=== PATIENT | male | born 1940 | race Caucasian/White ===

== ENCOUNTER 2020-03-17 18:30 | Inpatient (IN) | payer MEDICARE, SELFPAY ==
[~2020-03-17] VITALS: Ht 165.1 cm; Wt 54.0 kg
[2020-03-17 18:30] VITALS: BP_SYST 132
[2020-03-17 19:28] LABS: BASOPHILS % (AUTO) 0.1 % (0.0-2.0); EOSINOPHILS % (AUTO) 0.1 % (0.0-4.0); HEMATOCRIT 31.6 % (36-54); LYMPHOCYTES # (AUTO) 0.6 K/uL (1.0-5.5); LYMPHOCYTES % (AUTO) 9.3 % (20.5-51.5); MEAN CORPUSCULAR HEMOGLOBIN 39 pg (27-31); MEAN CORPUSCULAR HGB CONC 32 % (32-36); MEAN CORPUSCULAR VOLUME 122 fL (79.0-98.0); MONOCYTES # (AUTO) 0.3 K/uL (0.0-1.0); MONOCYTES % (AUTO) 4.6 % (1.7-9.3); NEUTROPHILS # (AUTO) 5.7 K/uL (1.8-7.7); NEUTROPHILS % (AUTO) 85.9 % (40.0-70.0); WHITE BLOOD COUNT (AUTO) 6.7 K/uL (4.8-10.8)
[2020-03-17 19:44] LABS: PLATELET COUNT (AUTO) 74 K/uL (130-430)
[2020-03-17 19:46] LABS: INR 1.1 (0.80-1.20); PROTHROMBIN TIME 10.9 SECS (9.5-12.5)
[2020-03-17 19:58] LABS: ANION GAP 17 (5-15); CALCIUM 8.9 mg/dL (8.4-11.0); CHLORIDE 118 mmol/L (98-107); CREATININE 1.48 mg/dL (0.55-1.30); GLUCOSE 152 mg/dL (70-99); SODIUM SERUM 156 mmol/L (136-145); UREA NITROGEN, BLOOD 44 mg/dL (8-21)
[2020-03-17] MEDS ORDERED: IPRATROPIUM/ALBUTEROL SULFATE 3 ML AMPUL.NEB (DUONEB) INH ONE (20:00)
[2020-03-17 20:06] LABS: ALANINE AMINOTRANSFERASE 18 U/L (12-78); ALBUMIN 3.6 g/dL (3.4-4.8); ASPARTATE AMINOTRANSFERASE 21 U/L (10-37); TOTAL BILIRUBIN 1.3 mg/dL (0.0-1.0)
[2020-03-17 20:26] LABS: CKMB RELATIVE INDEX 0.3 (0.0-2.9); CREATINE KINASE MB 1.1 ng/mL (0-3.6)
[2020-03-17] MEDS ORDERED: NACL 0.9% 1,000 ML IV ONE ×2 (20:30→22:00)
[2020-03-17] MEDS ORDERED: cefTRIAXone 1 GM in D5W 50 ML IV ONE (20:30)
[2020-03-17] MEDS ORDERED: ALLO100T PO (20:44)
[2020-03-17] MEDS ORDERED: FOLI-43 PO (20:46)
[2020-03-17] MEDS ORDERED: ATORVASTATIN (20:46)
[2020-03-17] MEDS ORDERED: CHOL500052 PO (20:47)
[2020-03-17] MEDS ORDERED: cefTRIAXone 1 GM VIAL ONE (20:53)
[2020-03-17] MEDS ORDERED: DEXAMETHASONE SOD PHOSPHATE 4 MG/ML VIAL IVP ONE (23:15)
[2020-03-17] MEDS ORDERED: AZITHROMYCIN 500 MG in NS 250 ML IV ONE (23:15)
[2020-03-17] MEDS ORDERED: AZITHROMYCIN 500 MG/VIAL (ZITHROMAX) IV ONE (23:43)
[2020-03-18] MEDS ORDERED: INSULIN REGULAR, HUMAN 100 UNITS/ML, 10 ML VIAL (humuLIN R) SUBCUT PRN
[2020-03-18] MEDS ORDERED: 0.45% NACL 1,000 ML IV ONE
[2020-03-18] MEDS ORDERED: KCL 40 mEq in 100 mL (PREMIX) 100 ML IV ONE
[2020-03-18] MEDS ORDERED: SODIUM BICARBONATE 8.4% JECT 100 MEQ in D5W 1,000 ML IV SCH (00:15)
[2020-03-18 00:20] VITALS: BP_SYST 137
[2020-03-18] MEDS ORDERED: KCL 40 mEq in 100 mL (PREMIX) 100 ML IV PRN (00:30)
[2020-03-18 00:36] LABS: BILIRUBIN,URINE 1+ (NEGATIVE); CLARITY/URINE CLEAR (CLEAR); COLOR,URINE YELLOW (YELLOW); GLUCOSE,URINE NEGATIVE (NEGATIVE); KETONES,URINE 1+ (NEGATIVE); LEUKOCYTE ESTERASE ,URINE NEGATIVE (NEGATIVE); NITRITE, URINE NEGATIVE (NEGATIVE); PH,URINE 5.5 (5.0-8.0); PROTEIN URINE 1+ (NEGATIVE); UROBILINOGEN,URINE 0.2 (0.2-1.0)
[2020-03-18 00:39] LABS: BLOOD, URINE TRACE (NEGATIVE)
[2020-03-18 00:42] LABS: BACTERIA,URINE FEW /HPF (None Seen)
[2020-03-18] MEDS ORDERED: PIPERACILLIN/TAZOBACTAM 2.25 GM VIAL IV ONE (01:12)
[2020-03-18] MEDS: PIPERACILLIN/TAZOBACTAM 2.25 GM in NS 50 ML IV SCH ×3 (01:20→12:58)
[2020-03-18] MEDS: metroNIDAZOLE 500 mg/NS 100 ML IV SCH ×2 (02:00→11:58)
[2020-03-18 02:22] VITALS: BP_SYST 126
[2020-03-18 08:00] VITALS: BP_SYST 128
[2020-03-18 09:47] LABS: URIC ACID 6.5 mg/dL (2.4-7.0)
[2020-03-18 10:42] LABS: TOTAL IRON BIND. CAPACITY 114 ug/dL (250-450)
[2020-03-18 12:00] VITALS: BP_SYST 130
[2020-03-18 14:47] LABS: ANION GAP 14 (5-15); CALCIUM 8.4 mg/dL (8.4-11.0); CREATININE 1.08 mg/dL (0.55-1.30); GLUCOSE 184 mg/dL (70-99); SODIUM SERUM 154 mmol/L (136-145); UREA NITROGEN, BLOOD 33 mg/dL (8-21)
[2020-03-18 14:52] LABS: ALANINE AMINOTRANSFERASE 21 U/L (12-78); ALBUMIN 2.7 g/dL (3.4-4.8); ASPARTATE AMINOTRANSFERASE 20 U/L (10-37); TOTAL BILIRUBIN 0.8 mg/dL (0.0-1.0)
[2020-03-18] MEDS ORDERED: POTASSIUM CHLORIDE 40 MEQ in D5W 250 ML IV ONE (15:00)
[2020-03-18] MEDS ORDERED: MEGESTROL ACETATE 400 MG/10 ML UDC PO ONE (15:15)
[2020-03-18] MEDS ORDERED: DEXTROSE 50% JECT 50 ML DISP.SYRIN IVP PRN ×2 (15:15)
[2020-03-18] MEDS ORDERED: *PPN PER PHARMACY XX PRN ×2 (15:15→20:00)
[2020-03-18 15:20] LABS: BASOPHILS % (AUTO) 0.1 % (0.0-2.0); LYMPHOCYTES # (AUTO) 0.4 K/uL (1.0-5.5); LYMPHOCYTES % (AUTO) 7.4 % (20.5-51.5); MEAN CORPUSCULAR HEMOGLOBIN 40 pg (27-31); MEAN CORPUSCULAR HGB CONC 31 % (32-36); MEAN CORPUSCULAR VOLUME 128 fL (79.0-98.0); MONOCYTES # (AUTO) 0.3 K/uL (0.0-1.0); MONOCYTES % (AUTO) 5.1 % (1.7-9.3); NEUTROPHILS % (AUTO) 87.4 % (40.0-70.0); PLATELET COUNT (AUTO) 55 K/uL (130-430); RED CELL DISTRIBUTION WIDTH 17.9 % (9.0-15.0); WHITE BLOOD COUNT (AUTO) 5.7 K/uL (4.8-10.8)
[2020-03-18 15:32] LABS: POTASSIUM 2.9 mmol/L (3.5-5.1)
[2020-03-18 15:34] LABS: CHLORIDE 122 mmol/L (98-107)
[2020-03-18 15:45] LABS: RED BLOOD CELL COUNT(AUTO) 1.93 MIL/uL (4.2-6.2)
[2020-03-18 15:48] LABS: HEMATOCRIT 24.8 % (36-54); HEMOGLOBIN 7.7 g/dL (14.0-18.0)
[2020-03-18 16:20] VITALS: BP_SYST 119
[2020-03-18] MEDS ORDERED: ENOXAPARIN SODIUM 40 MG/0.4 ML SYRINGE SUBCUT ONE (16:30)
[2020-03-18] MEDS: SODIUM BICARBONATE 8.4% JECT 50 MEQ in D5W 1,000 ML IV SCH (16:47)
[2020-03-18] MEDS: AZITHROMYCIN 500 MG in NS 250 ML IV SCH (18:00)
[2020-03-18] MEDS ORDERED: *TPN PER PHARMACY XX PRN (19:45)
[2020-03-18 20:00] VITALS: BP_SYST 117
[2020-03-18] MEDS: CEFEPIME 1 GM in D5W 50 ML IV SCH (22:08)
[2020-03-18] MEDS ORDERED: CEFEPIME 1 GM/VIAL (MAXIPIME) ONE (22:11)
[2020-03-19] VITALS: BP_SYST 110
[2020-03-19] MEDS: SODIUM BICARBONATE 8.4% JECT 50 MEQ in D5W 1,000 ML IV SCH ×2 (03:41→12:24)
[2020-03-19] MEDS: INSULIN REGULAR, HUMAN 100 UNITS/ML, 10 ML VIAL (humuLIN R) SUBCUT PRN ×2 (04:48→12:19)
[2020-03-19 08:00] VITALS: BP_SYST 104
[2020-03-19] MEDS: CEFEPIME 1 GM in D5W 50 ML IV SCH ×2 (08:29→21:19)
[2020-03-19] MEDS: MEGESTROL ACETATE 400 MG/10 ML UDC PO SCH (08:30)
[2020-03-19] MEDS ORDERED: ENOXAPARIN SODIUM 40 MG/0.4 ML SYRINGE SUBCUT SCH (09:00)
[2020-03-19 09:07] LABS: FOLATE (FOLIC ACID) 12.5 ng/mL (>3.0)
[2020-03-19 11:21] LABS: BASOPHILS % (AUTO) 0.3 % (0.0-2.0); EOSINOPHILS % (AUTO) 0.3 % (0.0-4.0); HEMATOCRIT 23.1 % (36-54); HEMOGLOBIN 7.6 g/dL (14.0-18.0); LYMPHOCYTES # (AUTO) 0.5 K/uL (1.0-5.5); LYMPHOCYTES % (AUTO) 11.9 % (20.5-51.5); MEAN CORPUSCULAR HEMOGLOBIN 39 pg (27-31); MEAN CORPUSCULAR HGB CONC 33 % (32-36); MEAN CORPUSCULAR VOLUME 117 fL (79.0-98.0); MONOCYTES # (AUTO) 0.1 K/uL (0.0-1.0); MONOCYTES % (AUTO) 2.8 % (1.7-9.3); NEUTROPHILS # (AUTO) 3.8 K/uL (1.8-7.7); NEUTROPHILS % (AUTO) 84.7 % (40.0-70.0); PLATELET COUNT (AUTO) 51 K/uL (130-430); WHITE BLOOD COUNT (AUTO) 4.5 K/uL (4.8-10.8)
[2020-03-19 11:23] LABS: RED BLOOD CELL COUNT(AUTO) 1.98 MIL/uL (4.2-6.2)
[2020-03-19 11:24] LABS: INR 1.2 (0.80-1.20); PROTHROMBIN TIME 12.2 SECS (9.5-12.5)
[2020-03-19 11:37] LABS: ALANINE AMINOTRANSFERASE 24 U/L (12-78); ALBUMIN 2.2 g/dL (3.4-4.8); ANION GAP 9 (5-15); ASPARTATE AMINOTRANSFERASE 24 U/L (10-37); CALCIUM 8.1 mg/dL (8.4-11.0); CHLORIDE 117 mmol/L (98-107); CREATININE 0.88 mg/dL (0.55-1.30); FREE T4 (FREE THYROXINE) 1.2 ng/dL (0.6-1.6); GLUCOSE 208 mg/dL (70-99); PHOSPHORUS 1.6 mg/dL (2.7-4.5); SODIUM SERUM 146 mmol/L (136-145); THYROID STIMULATING HORMONE 1.98 uIu/mL (0.34-4.82); TOTAL BILIRUBIN 0.6 mg/dL (0.0-1.0); TRIGLYCERIDES 56 mg/dL (30-150); UREA NITROGEN, BLOOD 23 mg/dL (8-21)
[2020-03-19 11:40] LABS: POTASSIUM 2.8 mmol/L (3.5-5.1)
[2020-03-19] MEDS ORDERED: KCL 40 mEq in 100 mL (PREMIX) 100 ML IV ONE (11:45)
[2020-03-19 11:48] LABS: C-REACTIVE PROTEIN QUANT 24.4 mg/dL (0-0.5)
[2020-03-19 12:15] VITALS: BP_SYST 102
[2020-03-19] MEDS ORDERED: THIAMINE HCL 100 MG in NS 50 ML IV ONE (13:00)
[2020-03-19] MEDS ORDERED: POTASSIUM CHLORIDE 40 MEQ in D5W 250 ML IV ONE (15:00)
[2020-03-19] MEDS: AZITHROMYCIN 500 MG in NS 250 ML IV SCH (17:49)
[2020-03-19 20:00] VITALS: BP_SYST 141
[2020-03-19] MEDS: K PHOS IV SCH ×8 (21:18)
[2020-03-19] MEDS: [UNRECOGNIZED DRUG - OTHER] IV SCH ×8 (21:18)
[2020-03-19] MEDS: CALCIUM GLUCONATE IV SCH ×8 (21:18)
[2020-03-19] MEDS: MVI IV SCH ×8 (21:18)
[2020-03-19] MEDS: TPN PERIPHERAL IV SCH ×8 (21:18)
[2020-03-19] MEDS: FAT EMULSIONS 250 ML IV SCH (21:19)
[2020-03-20] MEDS: INSULIN REGULAR, HUMAN 100 UNITS/ML, 10 ML VIAL (humuLIN R) SUBCUT PRN ×2 (00:05→05:59)
[2020-03-20 00:06] VITALS: BP_SYST 137
[2020-03-20] MEDS: SODIUM BICARBONATE 8.4% JECT 50 MEQ in D5W 1,000 ML IV SCH ×2 (00:06→12:36)
[2020-03-20 08:35] VITALS: BP_SYST 103
[2020-03-20] MEDS: MEGESTROL ACETATE 400 MG/10 ML UDC PO SCH (09:00)
[2020-03-20] MEDS: CEFEPIME 1 GM in D5W 50 ML IV SCH ×2 (09:00→21:53)
[2020-03-20 11:40] VITALS: BP_SYST 114
[2020-03-20 11:52] LABS: BASOPHILS % (AUTO) 0.5 % (0.0-2.0); EOSINOPHILS # (AUTO) 0.1 K/uL (0.0-0.4); EOSINOPHILS % (AUTO) 3.3 % (0.0-4.0); LYMPHOCYTES # (AUTO) 0.6 K/uL (1.0-5.5); LYMPHOCYTES % (AUTO) 16.1 % (20.5-51.5); MEAN CORPUSCULAR HEMOGLOBIN 39 pg (27-31); MEAN CORPUSCULAR HGB CONC 33 % (32-36); MEAN CORPUSCULAR VOLUME 117 fL (79.0-98.0); MONOCYTES # (AUTO) 0.1 K/uL (0.0-1.0); MONOCYTES % (AUTO) 2.9 % (1.7-9.3); NEUTROPHILS # (AUTO) 2.8 K/uL (1.8-7.7); NEUTROPHILS % (AUTO) 77.2 % (40.0-70.0); RED CELL DISTRIBUTION WIDTH 16.1 % (9.0-15.0); WHITE BLOOD COUNT (AUTO) 3.6 K/uL (4.8-10.8)
[2020-03-20 12:00] LABS: RED BLOOD CELL COUNT(AUTO) 1.76 MIL/uL (4.2-6.2)
[2020-03-20 12:03] LABS: HEMATOCRIT 20.6 % (36-54); HEMOGLOBIN 6.9 g/dL (14.0-18.0); PLATELET COUNT (AUTO) 35 K/uL (130-430)
[2020-03-20 12:12] LABS: ALANINE AMINOTRANSFERASE 26 U/L (12-78); ALBUMIN 1.8 g/dL (3.4-4.8); ANION GAP 5 (5-15); ASPARTATE AMINOTRANSFERASE 25 U/L (10-37); CALCIUM 7.3 mg/dL (8.4-11.0); CHLORIDE 107 mmol/L (98-107); CREATININE 0.62 mg/dL (0.55-1.30); GLUCOSE 211 mg/dL (70-99); PHOSPHORUS 2.7 mg/dL (2.7-4.5); SODIUM SERUM 136 mmol/L (136-145); TOTAL BILIRUBIN 0.4 mg/dL (0.0-1.0); UREA NITROGEN, BLOOD 15 mg/dL (8-21)
[2020-03-20 12:34] LABS: POTASSIUM 2.8 mmol/L (3.5-5.1)
[2020-03-20] MEDS ORDERED: POTASSIUM CHLORIDE 40 MEQ in NS 250 ML IV ONE (12:45)
[2020-03-20 16:15] VITALS: BP_SYST 114
[2020-03-20] MEDS: LR 1,000 ML IV SCH (18:09)
[2020-03-20] MEDS: AZITHROMYCIN 500 MG in NS 250 ML IV SCH (18:09)
[2020-03-20 20:00] VITALS: BP_SYST 138
[2020-03-20] MEDS ORDERED: ENOXAPARIN SODIUM 60 MG/0.6 ML SYRINGE SUBCUT SCH (21:00)
[2020-03-20] MEDS ORDERED: metroNIDAZOLE 500 mg/NS 100 ML IV ONE (21:42)
[2020-03-20] MEDS: TPN PERIPHERAL IV SCH ×8 (22:09)
[2020-03-20] MEDS: FAT EMULSIONS 250 ML IV SCH (22:09)
[2020-03-20] MEDS: [UNRECOGNIZED DRUG - OTHER] IV SCH ×8 (22:09)
[2020-03-20] MEDS: CALCIUM GLUCONATE IV SCH ×8 (22:09)
[2020-03-20] MEDS: MVI IV SCH ×8 (22:09)
[2020-03-20] MEDS: K PHOS IV SCH ×8 (22:09)
[2020-03-20] MEDS: metroNIDAZOLE 500 mg/NS 100 ML IV SCH (23:30)
[2020-03-21] VITALS: BP_SYST 117
[2020-03-21] MEDS: LR 1,000 ML IV SCH ×2 (01:00→06:30)
[2020-03-21 07:18] LABS: BASOPHILS % (AUTO) 0.2 % (0.0-2.0); EOSINOPHILS # (AUTO) 0.1 K/uL (0.0-0.4); EOSINOPHILS % (AUTO) 3.1 % (0.0-4.0); HEMATOCRIT 27.1 % (36-54); HEMOGLOBIN 9.2 g/dL (14.0-18.0); LYMPHOCYTES # (AUTO) 0.7 K/uL (1.0-5.5); LYMPHOCYTES % (AUTO) 19.2 % (20.5-51.5); MEAN CORPUSCULAR HEMOGLOBIN 37 pg (27-31); MEAN CORPUSCULAR HGB CONC 34 % (32-36); MEAN CORPUSCULAR VOLUME 107 fL (79.0-98.0); MONOCYTES # (AUTO) 0.1 K/uL (0.0-1.0); MONOCYTES % (AUTO) 3.6 % (1.7-9.3); NEUTROPHILS # (AUTO) 2.8 K/uL (1.8-7.7); NEUTROPHILS % (AUTO) 73.9 % (40.0-70.0); RED BLOOD CELL COUNT(AUTO) 2.53 MIL/uL (4.2-6.2); RED CELL DISTRIBUTION WIDTH 21.9 % (9.0-15.0); WHITE BLOOD COUNT (AUTO) 3.8 K/uL (4.8-10.8)
[2020-03-21 07:29] LABS: PLATELET COUNT (AUTO) 35 K/uL (130-430)
[2020-03-21 07:54] VITALS: BP_SYST 126
[2020-03-21 08:04] LABS: ALANINE AMINOTRANSFERASE 22 U/L (12-78); ALBUMIN 1.8 g/dL (3.4-4.8); ANION GAP 5 (5-15); ASPARTATE AMINOTRANSFERASE 32 U/L (10-37); CALCIUM 7.7 mg/dL (8.4-11.0); CHLORIDE 108 mmol/L (98-107); CREATININE 0.67 mg/dL (0.55-1.30); GLUCOSE 136 mg/dL (70-99); POTASSIUM 3.2 mmol/L (3.5-5.1); SODIUM SERUM 139 mmol/L (136-145); TOTAL BILIRUBIN 0.6 mg/dL (0.0-1.0); UREA NITROGEN, BLOOD 16 mg/dL (8-21)
[2020-03-21] MEDS ORDERED: FUROSEMIDE 40 MG/4 ML VIAL IVP ONE (09:15)
[2020-03-21] MEDS: MEGESTROL ACETATE 400 MG/10 ML UDC PO SCH (09:18)
[2020-03-21] MEDS: metroNIDAZOLE 500 mg/NS 100 ML IV SCH ×2 (09:19→21:01)
[2020-03-21] MEDS: CEFEPIME 1 GM in D5W 50 ML IV SCH ×2 (09:19→21:01)
[2020-03-21 12:30] VITALS: BP_SYST 125
[2020-03-21] MEDS ORDERED: KCL 40 mEq in 100 mL (PREMIX) 100 ML IV ONE (14:15)
[2020-03-21 16:56] VITALS: BP_SYST 130
[2020-03-21] MEDS ORDERED: ENOXAPARIN SODIUM 30 MG/0.3 ML SYRINGE SUBCUT ONE (17:00)
[2020-03-21] MEDS: AZITHROMYCIN 500 MG in NS 250 ML IV SCH (17:49)
[2020-03-21 20:00] VITALS: BP_SYST 113
[2020-03-21] MEDS ORDERED: K PHOS IV SCH ×9 (21:00)
[2020-03-21] MEDS ORDERED: TPN PERIPHERAL IV SCH ×9 (21:00)
[2020-03-21] MEDS ORDERED: [UNRECOGNIZED DRUG - OTHER] IV SCH ×9 (21:00)
[2020-03-21] MEDS ORDERED: POTASSIUM ACETATE IV SCH ×9 (21:00)
[2020-03-21] MEDS: FAT EMULSIONS 250 ML IV SCH (21:03)
[2020-03-22 01:49] VITALS: BP_SYST 122
[2020-03-22 07:10] LABS: BASOPHILS % (AUTO) 0.3 % (0.0-2.0); EOSINOPHILS # (AUTO) 0.1 K/uL (0.0-0.4); EOSINOPHILS % (AUTO) 2.8 % (0.0-4.0); HEMATOCRIT 26.9 % (36-54); HEMOGLOBIN 9.2 g/dL (14.0-18.0); LYMPHOCYTES # (AUTO) 0.8 K/uL (1.0-5.5); LYMPHOCYTES % (AUTO) 17.9 % (20.5-51.5); MEAN CORPUSCULAR HEMOGLOBIN 36 pg (27-31); MEAN CORPUSCULAR HGB CONC 34 % (32-36); MEAN CORPUSCULAR VOLUME 107 fL (79.0-98.0); MONOCYTES # (AUTO) 0.2 K/uL (0.0-1.0); MONOCYTES % (AUTO) 5.4 % (1.7-9.3); NEUTROPHILS # (AUTO) 3.2 K/uL (1.8-7.7); NEUTROPHILS % (AUTO) 73.6 % (40.0-70.0); RED BLOOD CELL COUNT(AUTO) 2.52 MIL/uL (4.2-6.2); RED CELL DISTRIBUTION WIDTH 21.7 % (9.0-15.0); WHITE BLOOD COUNT (AUTO) 4.4 K/uL (4.8-10.8)
[2020-03-22 07:37] LABS: ALANINE AMINOTRANSFERASE 27 U/L (12-78); ALBUMIN 1.8 g/dL (3.4-4.8); ANION GAP 6 (5-15); ASPARTATE AMINOTRANSFERASE 36 U/L (10-37); CALCIUM 7.9 mg/dL (8.4-11.0); CHLORIDE 106 mmol/L (98-107); CREATININE 0.64 mg/dL (0.55-1.30); GLUCOSE 155 mg/dL (70-99); PHOSPHORUS 3.2 mg/dL (2.7-4.5); POTASSIUM 3.5 mmol/L (3.5-5.1); SODIUM SERUM 138 mmol/L (136-145); TOTAL BILIRUBIN 0.6 mg/dL (0.0-1.0); UREA NITROGEN, BLOOD 19 mg/dL (8-21)
[2020-03-22 07:49] VITALS: BP_SYST 180
[2020-03-22 08:07] LABS: PLATELET COUNT (AUTO) 28 K/uL (130-430)
[2020-03-22] MEDS: metroNIDAZOLE 500 mg/NS 100 ML IV SCH ×2 (08:56→21:16)
[2020-03-22] MEDS: MEGESTROL ACETATE 400 MG/10 ML UDC PO SCH (08:57)
[2020-03-22] MEDS: ENOXAPARIN SODIUM 30 MG/0.3 ML SYRINGE SUBCUT SCH ×2 (08:57→17:38)
[2020-03-22] MEDS: CEFEPIME 1 GM in D5W 50 ML IV SCH (08:57)
[2020-03-22 12:26] VITALS: BP_SYST 126
[2020-03-22] MEDS ORDERED: DOXYCYCLINE HYCLATE 100 MG CAPSULE PO ONE (13:00)
[2020-03-22 16:56] VITALS: BP_SYST 133
[2020-03-22] MEDS: AZITHROMYCIN 500 MG in NS 250 ML IV SCH (17:44)
[2020-03-22] MEDS ORDERED: DOXYCYCLINE HYCLATE 100 MG in D5W 100 ML IV ONE (18:30)
[2020-03-22 20:00] VITALS: BP_SYST 148
[2020-03-22] MEDS ORDERED: SODIUM CHLORIDE IV SCH ×10 (21:00)
[2020-03-22] MEDS ORDERED: [UNRECOGNIZED DRUG - OTHER] IV SCH ×10 (21:00)
[2020-03-22] MEDS ORDERED: K PHOS IV SCH ×10 (21:00)
[2020-03-22] MEDS ORDERED: DOXYCYCLINE HYCLATE 100 MG CAPSULE PO SCH (21:00)
[2020-03-22] MEDS ORDERED: TPN CENTRAL IV SCH ×10 (21:00)
[2020-03-22] MEDS ORDERED: POTASSIUM ACETATE IV SCH ×10 (21:00)
[2020-03-22] MEDS: FAT EMULSIONS 250 ML IV SCH (21:18)
[2020-03-23 02:28] VITALS: BP_SYST 131
[2020-03-23] MEDS: DOXYCYCLINE HYCLATE 100 MG in D5W 100 ML IV SCH ×2 (05:44→18:45)
[2020-03-23] MEDS: INSULIN REGULAR, HUMAN 100 UNITS/ML, 10 ML VIAL (humuLIN R) SUBCUT PRN (06:04)
[2020-03-23 07:31] LABS: EOSINOPHILS # (AUTO) 0.1 K/uL (0.0-0.4); HEMOGLOBIN 7.8 g/dL (14.0-18.0); LYMPHOCYTES # (AUTO) 0.7 K/uL (1.0-5.5); MONOCYTES # (AUTO) 0.3 K/uL (0.0-1.0); NEUTROPHILS # (AUTO) 2.7 K/uL (1.8-7.7)
[2020-03-23 07:49] LABS: ALANINE AMINOTRANSFERASE 31 U/L (12-78); ALBUMIN 1.9 g/dL (3.4-4.8); ANION GAP 6 (5-15); ASPARTATE AMINOTRANSFERASE 31 U/L (10-37); CALCIUM 7.8 mg/dL (8.4-11.0); CHLORIDE 102 mmol/L (98-107); GLUCOSE 163 mg/dL (70-99); PHOSPHORUS 2.5 mg/dL (2.7-4.5); POTASSIUM 3.2 mmol/L (3.5-5.1); SODIUM SERUM 134 mmol/L (136-145); TOTAL BILIRUBIN 0.6 mg/dL (0.0-1.0); TRIGLYCERIDES 47 mg/dL (30-150); UREA NITROGEN, BLOOD 13 mg/dL (8-21)
[2020-03-23 07:52] LABS: BASOPHILS % (AUTO) 0.3 % (0.0-2.0); EOSINOPHILS % (AUTO) 3.3 % (0.0-4.0); LYMPHOCYTES % (AUTO) 19.3 % (20.5-51.5); MEAN CORPUSCULAR HEMOGLOBIN 37 pg (27-31); MEAN CORPUSCULAR HGB CONC 34 % (32-36); MEAN CORPUSCULAR VOLUME 107 fL (79.0-98.0); MONOCYTES % (AUTO) 7.2 % (1.7-9.3); NEUTROPHILS % (AUTO) 69.9 % (40.0-70.0); PLATELET COUNT (AUTO) 77 K/uL (130-430); RED BLOOD CELL COUNT(AUTO) 2.14 MIL/uL (4.2-6.2); RED CELL DISTRIBUTION WIDTH 21.4 % (9.0-15.0); WHITE BLOOD COUNT (AUTO) 3.9 K/uL (4.8-10.8)
[2020-03-23 07:57] LABS: INR 1.1 (0.80-1.20); PROTHROMBIN TIME 10.9 SECS (9.5-12.5)
[2020-03-23 07:58] VITALS: BP_SYST 129
[2020-03-23] MEDS: metroNIDAZOLE 500 mg/NS 100 ML IV SCH ×2 (08:56→22:18)
[2020-03-23] MEDS: MEGESTROL ACETATE 400 MG/10 ML UDC PO SCH (08:57)
[2020-03-23] MEDS: ENOXAPARIN SODIUM 30 MG/0.3 ML SYRINGE SUBCUT SCH (08:57)
[2020-03-23 12:05] VITALS: BP_SYST 132
[2020-03-23] MEDS ORDERED: KCL 40 mEq in 100 mL (PREMIX) 100 ML IV ONE (14:45)
[2020-03-23] MEDS ORDERED: K PHOS 15 MM in NS 250 ML IV ONE (14:45)
[2020-03-23 16:10] VITALS: BP_SYST 123
[2020-03-23] MEDS ORDERED: TPN CENTRAL IV SCH ×10 (21:00)
[2020-03-23] MEDS ORDERED: [UNRECOGNIZED DRUG - OTHER] IV SCH ×10 (21:00)
[2020-03-23] MEDS ORDERED: K PHOS IV SCH ×10 (21:00)
[2020-03-23] MEDS ORDERED: SODIUM CHLORIDE IV SCH ×10 (21:00)
[2020-03-23] MEDS ORDERED: POTASSIUM ACETATE IV SCH ×10 (21:00)
[2020-03-23 21:06] VITALS: BP_SYST 129
[2020-03-23] MEDS: FAT EMULSIONS 250 ML IV SCH (22:19)
[2020-03-24 03:45] VITALS: BP_SYST 133
[2020-03-24 06:32] LABS: BASOPHILS % (AUTO) 0.2 % (0.0-2.0); EOSINOPHILS # (AUTO) 0.1 K/uL (0.0-0.4); EOSINOPHILS % (AUTO) 2.3 % (0.0-4.0); LYMPHOCYTES % (AUTO) 25.4 % (20.5-51.5); MEAN CORPUSCULAR HEMOGLOBIN 36 pg (27-31); MEAN CORPUSCULAR HGB CONC 33 % (32-36); MEAN CORPUSCULAR VOLUME 108 fL (79.0-98.0); MONOCYTES # (AUTO) 0.3 K/uL (0.0-1.0); MONOCYTES % (AUTO) 6.3 % (1.7-9.3); NEUTROPHILS # (AUTO) 2.7 K/uL (1.8-7.7); NEUTROPHILS % (AUTO) 65.8 % (40.0-70.0); PLATELET COUNT (AUTO) 64 K/uL (130-430); RED BLOOD CELL COUNT(AUTO) 2.22 MIL/uL (4.2-6.2); RED CELL DISTRIBUTION WIDTH 20.6 % (9.0-15.0); WHITE BLOOD COUNT (AUTO) 4.1 K/uL (4.8-10.8)
[2020-03-24 06:44] LABS: ALANINE AMINOTRANSFERASE 36 U/L (12-78); ALBUMIN 1.9 g/dL (3.4-4.8); ANION GAP 4 (5-15); ASPARTATE AMINOTRANSFERASE 27 U/L (10-37); CALCIUM 8.2 mg/dL (8.4-11.0); CHLORIDE 101 mmol/L (98-107); CREATININE 0.62 mg/dL (0.55-1.30); GLUCOSE 182 mg/dL (70-99); PHOSPHORUS 2.9 mg/dL (2.7-4.5); POTASSIUM 3.8 mmol/L (3.5-5.1); SODIUM SERUM 132 mmol/L (136-145); TOTAL BILIRUBIN 0.5 mg/dL (0.0-1.0); UREA NITROGEN, BLOOD 13 mg/dL (8-21)
[2020-03-24] MEDS: DOXYCYCLINE HYCLATE 100 MG in D5W 100 ML IV SCH ×2 (06:51→17:07)
[2020-03-24] MEDS: INSULIN REGULAR, HUMAN 100 UNITS/ML, 10 ML VIAL (humuLIN R) SUBCUT PRN ×3 (06:54→22:15)
[2020-03-24 08:26] VITALS: BP_SYST 138
[2020-03-24] MEDS: metroNIDAZOLE 500 mg/NS 100 ML IV SCH ×2 (09:59→20:52)
[2020-03-24] MEDS: MEGESTROL ACETATE 400 MG/10 ML UDC PO SCH (10:00)
[2020-03-24] MEDS: ENOXAPARIN SODIUM 30 MG/0.3 ML SYRINGE SUBCUT SCH (10:01)
[2020-03-24 12:25] VITALS: BP_SYST 108
[2020-03-24 16:25] VITALS: BP_SYST 102
[2020-03-24 20:00] VITALS: BP_SYST 115
[2020-03-24] MEDS: FAT EMULSIONS 250 ML IV SCH (20:53)
[2020-03-24] MEDS ORDERED: POTASSIUM ACETATE IV SCH ×10 (21:00)
[2020-03-24] MEDS ORDERED: SODIUM CHLORIDE IV SCH ×10 (21:00)
[2020-03-24] MEDS ORDERED: [UNRECOGNIZED DRUG - OTHER] IV SCH ×10 (21:00)
[2020-03-24] MEDS ORDERED: TPN CENTRAL IV SCH ×10 (21:00)
[2020-03-25] VITALS: BP_SYST 105
[2020-03-25] MEDS: DOXYCYCLINE HYCLATE 100 MG in D5W 100 ML IV SCH ×2 (05:19→17:03)
[2020-03-25] MEDS: INSULIN REGULAR, HUMAN 100 UNITS/ML, 10 ML VIAL (humuLIN R) SUBCUT PRN ×3 (05:20→23:20)
[2020-03-25 07:20] LABS: BASOPHILS % (AUTO) 0.3 % (0.0-2.0); EOSINOPHILS # (AUTO) 0.1 K/uL (0.0-0.4); EOSINOPHILS % (AUTO) 1.8 % (0.0-4.0); HEMATOCRIT 22.5 % (36-54); HEMOGLOBIN 7.5 g/dL (14.0-18.0); LYMPHOCYTES % (AUTO) 21.2 % (20.5-51.5); MEAN CORPUSCULAR HEMOGLOBIN 36 pg (27-31); MEAN CORPUSCULAR HGB CONC 33 % (32-36); MEAN CORPUSCULAR VOLUME 109 fL (79.0-98.0); MONOCYTES # (AUTO) 0.3 K/uL (0.0-1.0); MONOCYTES % (AUTO) 6.2 % (1.7-9.3); NEUTROPHILS # (AUTO) 3.4 K/uL (1.8-7.7); NEUTROPHILS % (AUTO) 70.5 % (40.0-70.0); PLATELET COUNT (AUTO) 58 K/uL (130-430); RED BLOOD CELL COUNT(AUTO) 2.07 MIL/uL (4.2-6.2); WHITE BLOOD COUNT (AUTO) 4.9 K/uL (4.8-10.8)
[2020-03-25 07:43] LABS: RED CELL DISTRIBUTION WIDTH 20.4 % (9.0-15.0)
[2020-03-25 08:00] VITALS: BP_SYST 133
[2020-03-25 08:19] LABS: ANION GAP 3 (5-15); CALCIUM 7.9 mg/dL (8.4-11.0); CHLORIDE 104 mmol/L (98-107); GLUCOSE 207 mg/dL (70-99); POTASSIUM 3.8 mmol/L (3.5-5.1); SODIUM SERUM 135 mmol/L (136-145)
[2020-03-25 08:20] LABS: ALANINE AMINOTRANSFERASE 31 U/L (12-78); ALBUMIN 1.8 g/dL (3.4-4.8); ASPARTATE AMINOTRANSFERASE 24 U/L (10-37); CREATININE 0.66 mg/dL (0.55-1.30); PHOSPHORUS 2.5 mg/dL (2.7-4.5); TOTAL BILIRUBIN 0.5 mg/dL (0.0-1.0); UREA NITROGEN, BLOOD 17 mg/dL (8-21)
[2020-03-25] MEDS: MEGESTROL ACETATE 400 MG/10 ML UDC PO SCH (09:00)
[2020-03-25] MEDS: ENOXAPARIN SODIUM 30 MG/0.3 ML SYRINGE SUBCUT SCH (09:07)
[2020-03-25] MEDS: metroNIDAZOLE 500 mg/NS 100 ML IV SCH ×2 (09:08→20:26)
[2020-03-25 11:39] VITALS: BP_SYST 99
[2020-03-25] MEDS ORDERED: K PHOS 15 MM in NS 250 ML IV ONE (12:00)
[2020-03-25 15:37] VITALS: BP_SYST 127
[2020-03-25 20:00] VITALS: BP_SYST 122
[2020-03-25] MEDS: FAT EMULSIONS 250 ML IV SCH (20:27)
[2020-03-25] MEDS ORDERED: [UNRECOGNIZED DRUG - OTHER] IV SCH ×10 (21:00)
[2020-03-25] MEDS ORDERED: TPN CENTRAL IV SCH ×10 (21:00)
[2020-03-25] MEDS ORDERED: POTASSIUM ACETATE IV SCH ×10 (21:00)
[2020-03-25] MEDS ORDERED: SODIUM CHLORIDE IV SCH ×10 (21:00)
[2020-03-26 02:00] VITALS: BP_SYST 119
[2020-03-26] MEDS: DOXYCYCLINE HYCLATE 100 MG in D5W 100 ML IV SCH ×2 (05:51→17:01)
[2020-03-26] MEDS: INSULIN REGULAR, HUMAN 100 UNITS/ML, 10 ML VIAL (humuLIN R) SUBCUT PRN ×3 (05:57→17:01)
[2020-03-26 06:15] LABS: BASOPHILS % (AUTO) 0.3 % (0.0-2.0); EOSINOPHILS # (AUTO) 0.1 K/uL (0.0-0.4); EOSINOPHILS % (AUTO) 1.6 % (0.0-4.0); HEMATOCRIT 22.7 % (36-54); HEMOGLOBIN 7.6 g/dL (14.0-18.0); LYMPHOCYTES # (AUTO) 0.9 K/uL (1.0-5.5); LYMPHOCYTES % (AUTO) 19.4 % (20.5-51.5); MEAN CORPUSCULAR HEMOGLOBIN 37 pg (27-31); MEAN CORPUSCULAR HGB CONC 34 % (32-36); MEAN CORPUSCULAR VOLUME 109 fL (79.0-98.0); MONOCYTES # (AUTO) 0.3 K/uL (0.0-1.0); NEUTROPHILS # (AUTO) 3.5 K/uL (1.8-7.7); NEUTROPHILS % (AUTO) 71.7 % (40.0-70.0); PLATELET COUNT (AUTO) 53 K/uL (130-430); RED BLOOD CELL COUNT(AUTO) 2.08 MIL/uL (4.2-6.2); RED CELL DISTRIBUTION WIDTH 20.5 % (9.0-15.0); WHITE BLOOD COUNT (AUTO) 4.9 K/uL (4.8-10.8)
[2020-03-26 06:48] LABS: ALANINE AMINOTRANSFERASE 29 U/L (12-78); ALBUMIN 1.9 g/dL (3.4-4.8); ANION GAP 4 (5-15); ASPARTATE AMINOTRANSFERASE 16 U/L (10-37); CALCIUM 7.9 mg/dL (8.4-11.0); CHLORIDE 105 mmol/L (98-107); CREATININE 0.62 mg/dL (0.55-1.30); GLUCOSE 190 mg/dL (70-99); PHOSPHORUS 2.7 mg/dL (2.7-4.5); SODIUM SERUM 135 mmol/L (136-145); TOTAL BILIRUBIN 0.5 mg/dL (0.0-1.0); UREA NITROGEN, BLOOD 17 mg/dL (8-21)
[2020-03-26 08:00] VITALS: BP_SYST 124
[2020-03-26] MEDS: ENOXAPARIN SODIUM 30 MG/0.3 ML SYRINGE SUBCUT SCH (08:22)
[2020-03-26] MEDS: metroNIDAZOLE 500 mg/NS 100 ML IV SCH ×2 (08:22→21:20)
[2020-03-26] MEDS: MEGESTROL ACETATE 400 MG/10 ML UDC PO SCH (08:23)
[2020-03-26 12:00] VITALS: BP_SYST 93
[2020-03-26 16:45] VITALS: BP_SYST 144
[2020-03-26] MEDS ORDERED: SODIUM CHLORIDE IV SCH ×11 (21:00)
[2020-03-26] MEDS ORDERED: POTASSIUM ACETATE IV SCH ×11 (21:00)
[2020-03-26] MEDS ORDERED: TPN CENTRAL IV SCH ×11 (21:00)
[2020-03-26] MEDS ORDERED: [UNRECOGNIZED DRUG - OTHER] IV SCH ×11 (21:00)
[2020-03-26 21:18] VITALS: BP_SYST 115
[2020-03-26] MEDS: FAT EMULSIONS 250 ML IV SCH (21:21)
[2020-03-27 01:52] VITALS: BP_SYST 119
[2020-03-27] MEDS: DOXYCYCLINE HYCLATE 100 MG in D5W 100 ML IV SCH ×2 (05:38→17:32)
[2020-03-27] MEDS: INSULIN REGULAR, HUMAN 100 UNITS/ML, 10 ML VIAL (humuLIN R) SUBCUT PRN ×3 (05:49→17:36)
[2020-03-27 07:14] LABS: ALBUMIN 1.6 g/dL (3.4-4.8); ANION GAP 5 (5-15); CALCIUM 8.1 mg/dL (8.4-11.0); CHLORIDE 104 mmol/L (98-107); CREATININE 0.47 mg/dL (0.55-1.30); GLUCOSE 237 mg/dL (70-99); POTASSIUM 3.8 mmol/L (3.5-5.1); SODIUM SERUM 133 mmol/L (136-145); TRIGLYCERIDES 22 mg/dL (30-150); UREA NITROGEN, BLOOD 17 mg/dL (8-21)
[2020-03-27 07:16] LABS: BASOPHILS % (AUTO) 0.4 % (0.0-2.0); EOSINOPHILS # (AUTO) 0.1 K/uL (0.0-0.4); EOSINOPHILS % (AUTO) 2.1 % (0.0-4.0); HEMATOCRIT 22.3 % (36-54); HEMOGLOBIN 7.4 g/dL (14.0-18.0); LYMPHOCYTES # (AUTO) 0.9 K/uL (1.0-5.5); LYMPHOCYTES % (AUTO) 21.7 % (20.5-51.5); MEAN CORPUSCULAR HEMOGLOBIN 36 pg (27-31); MEAN CORPUSCULAR HGB CONC 33 % (32-36); MEAN CORPUSCULAR VOLUME 110 fL (79.0-98.0); MONOCYTES # (AUTO) 0.3 K/uL (0.0-1.0); MONOCYTES % (AUTO) 8.1 % (1.7-9.3); NEUTROPHILS # (AUTO) 2.7 K/uL (1.8-7.7); RED BLOOD CELL COUNT(AUTO) 2.04 MIL/uL (4.2-6.2); WHITE BLOOD COUNT (AUTO) 3.9 K/uL (4.8-10.8)
[2020-03-27 07:24] LABS: ALANINE AMINOTRANSFERASE 27 U/L (12-78); ASPARTATE AMINOTRANSFERASE 16 U/L (10-37); PHOSPHORUS 3.1 mg/dL (2.7-4.5); TOTAL BILIRUBIN 0.3 mg/dL (0.0-1.0)
[2020-03-27 08:00] VITALS: BP_SYST 130
[2020-03-27 08:14] LABS: PLATELET COUNT (AUTO) 40 K/uL (130-430)
[2020-03-27] MEDS: ENOXAPARIN SODIUM 30 MG/0.3 ML SYRINGE SUBCUT SCH (09:00)
[2020-03-27 11:00] LABS: NEUTROPHILS % (AUTO) 67.7 % (40.0-70.0)
[2020-03-27 12:48] VITALS: BP_SYST 97
[2020-03-27] MEDS: methylPREDNISolone SOD SUCC/PF 62.5 MG/ML VIAL IVP SCH ×2 (14:30→22:00)
[2020-03-27 16:32] VITALS: BP_SYST 124
[2020-03-27] MEDS: FAT EMULSIONS 250 ML IV SCH (21:00)
[2020-03-27] MEDS ORDERED: POTASSIUM ACETATE IV SCH ×11 (21:00)
[2020-03-27] MEDS ORDERED: SODIUM CHLORIDE IV SCH ×11 (21:00)
[2020-03-27] MEDS ORDERED: [UNRECOGNIZED DRUG - OTHER] IV SCH ×11 (21:00)
[2020-03-27] MEDS ORDERED: TPN CENTRAL IV SCH ×11 (21:00)
[2020-03-27] MEDS: metroNIDAZOLE 500 mg/NS 100 ML IV SCH (21:00)
[2020-03-28 06:33] LABS: BASOPHILS % (AUTO) 0.2 % (0.0-2.0); EOSINOPHILS % (AUTO) 0.1 % (0.0-4.0); HEMATOCRIT 22.8 % (36-54); HEMOGLOBIN 7.6 g/dL (14.0-18.0); LYMPHOCYTES # (AUTO) 0.5 K/uL (1.0-5.5); LYMPHOCYTES % (AUTO) 13.5 % (20.5-51.5); MEAN CORPUSCULAR HEMOGLOBIN 36 pg (27-31); MEAN CORPUSCULAR HGB CONC 33 % (32-36); MEAN CORPUSCULAR VOLUME 109 fL (79.0-98.0); MONOCYTES # (AUTO) 0.1 K/uL (0.0-1.0); MONOCYTES % (AUTO) 2.1 % (1.7-9.3); NEUTROPHILS # (AUTO) 3.3 K/uL (1.8-7.7); NEUTROPHILS % (AUTO) 84.1 % (40.0-70.0); RED BLOOD CELL COUNT(AUTO) 2.09 MIL/uL (4.2-6.2); RED CELL DISTRIBUTION WIDTH 20.1 % (9.0-15.0); WHITE BLOOD COUNT (AUTO) 3.9 K/uL (4.8-10.8)
[2020-03-28 06:38] LABS: PLATELET COUNT (AUTO) 47 K/uL (130-430)
[2020-03-28] MEDS: DOXYCYCLINE HYCLATE 100 MG in D5W 100 ML IV SCH ×2 (06:39→17:32)
[2020-03-28] MEDS: methylPREDNISolone SOD SUCC/PF 62.5 MG/ML VIAL IVP SCH ×3 (06:39→21:06)
[2020-03-28 06:45] LABS: ANION GAP 4 (5-15); CALCIUM 8.5 mg/dL (8.4-11.0); CHLORIDE 107 mmol/L (98-107); CREATININE 0.55 mg/dL (0.55-1.30); GLUCOSE 335 mg/dL (70-99); PHOSPHORUS 3.7 mg/dL (2.7-4.5); POTASSIUM 4.1 mmol/L (3.5-5.1); SODIUM SERUM 136 mmol/L (136-145); UREA NITROGEN, BLOOD 17 mg/dL (8-21)
[2020-03-28 08:00] VITALS: BP_SYST 136
[2020-03-28] MEDS: metroNIDAZOLE 500 mg/NS 100 ML IV SCH ×2 (10:07→20:59)
[2020-03-28] MEDS: ENOXAPARIN SODIUM 30 MG/0.3 ML SYRINGE SUBCUT SCH (10:11)
[2020-03-28] MEDS: INSULIN REGULAR, HUMAN 100 UNITS/ML, 10 ML VIAL (humuLIN R) SUBCUT PRN ×3 (11:12→23:37)
[2020-03-28 12:19] VITALS: BP_SYST 116
[2020-03-28 15:34] VITALS: BP_SYST 126
[2020-03-28 20:00] VITALS: BP_SYST 122
[2020-03-28] MEDS ORDERED: SODIUM CHLORIDE IV SCH ×11 (21:00)
[2020-03-28] MEDS ORDERED: TPN CENTRAL IV SCH ×11 (21:00)
[2020-03-28] MEDS ORDERED: POTASSIUM ACETATE IV SCH ×11 (21:00)
[2020-03-28] MEDS ORDERED: [UNRECOGNIZED DRUG - OTHER] IV SCH ×11 (21:00)
[2020-03-28] MEDS: FAT EMULSIONS 250 ML IV SCH (21:05)
[2020-03-29 01:17] VITALS: BP_SYST 132
[2020-03-29] MEDS: DOXYCYCLINE HYCLATE 100 MG in D5W 100 ML IV SCH ×2 (05:30→17:35)
[2020-03-29] MEDS: methylPREDNISolone SOD SUCC/PF 62.5 MG/ML VIAL IVP SCH ×3 (05:30→21:36)
[2020-03-29] MEDS: INSULIN REGULAR, HUMAN 100 UNITS/ML, 10 ML VIAL (humuLIN R) SUBCUT PRN ×3 (05:33→17:43)
[2020-03-29 06:27] LABS: BASOPHILS % (AUTO) 0.1 % (0.0-2.0); EOSINOPHILS % (AUTO) 0.1 % (0.0-4.0); HEMOGLOBIN 7.6 g/dL (14.0-18.0); LYMPHOCYTES # (AUTO) 0.6 K/uL (1.0-5.5); LYMPHOCYTES % (AUTO) 10.8 % (20.5-51.5); MEAN CORPUSCULAR HEMOGLOBIN 36 pg (27-31); MEAN CORPUSCULAR HGB CONC 33 % (32-36); MEAN CORPUSCULAR VOLUME 110 fL (79.0-98.0); MONOCYTES # (AUTO) 0.3 K/uL (0.0-1.0); MONOCYTES % (AUTO) 4.9 % (1.7-9.3); NEUTROPHILS # (AUTO) 4.7 K/uL (1.8-7.7); NEUTROPHILS % (AUTO) 84.1 % (40.0-70.0); RED BLOOD CELL COUNT(AUTO) 2.09 MIL/uL (4.2-6.2); RED CELL DISTRIBUTION WIDTH 20.2 % (9.0-15.0); WHITE BLOOD COUNT (AUTO) 5.6 K/uL (4.8-10.8)
[2020-03-29 06:35] LABS: ANION GAP 4 (5-15); CALCIUM 8.9 mg/dL (8.4-11.0); CHLORIDE 113 mmol/L (98-107); CREATININE 0.57 mg/dL (0.55-1.30); GLUCOSE 290 mg/dL (70-99); PHOSPHORUS 2.8 mg/dL (2.7-4.5); POTASSIUM 3.9 mmol/L (3.5-5.1); SODIUM SERUM 144 mmol/L (136-145); UREA NITROGEN, BLOOD 20 mg/dL (8-21)
[2020-03-29 06:38] LABS: PLATELET COUNT (AUTO) 47 K/uL (130-430)
[2020-03-29] MEDS: ENOXAPARIN SODIUM 30 MG/0.3 ML SYRINGE SUBCUT SCH (09:00)
[2020-03-29] MEDS: metroNIDAZOLE 500 mg/NS 100 ML IV SCH (10:22)
[2020-03-29] MEDS ORDERED: FUROSEMIDE 20 MG/2 ML VIAL IVP ONE (11:15)
[2020-03-29 11:34] VITALS: BP_SYST 133
[2020-03-29 15:32] VITALS: BP_SYST 140
[2020-03-29 20:00] VITALS: BP_SYST 123
[2020-03-29] MEDS ORDERED: TPN CENTRAL IV SCH ×11 (21:00)
[2020-03-29] MEDS ORDERED: [UNRECOGNIZED DRUG - OTHER] IV SCH ×11 (21:00)
[2020-03-29] MEDS ORDERED: SODIUM CHLORIDE IV SCH ×11 (21:00)
[2020-03-29] MEDS ORDERED: POTASSIUM ACETATE IV SCH ×11 (21:00)
[2020-03-29] MEDS: FAT EMULSIONS 250 ML IV SCH (21:35)
[2020-03-30] MEDS: INSULIN REGULAR, HUMAN 100 UNITS/ML, 10 ML VIAL (humuLIN R) SUBCUT PRN ×5 (00:14→23:14)
[2020-03-30 01:17] VITALS: BP_SYST 127
[2020-03-30] MEDS: methylPREDNISolone SOD SUCC/PF 62.5 MG/ML VIAL IVP SCH ×3 (05:20→22:43)
[2020-03-30 06:36] LABS: BASOPHILS % (AUTO) 0.2 % (0.0-2.0); HEMATOCRIT 22.6 % (36-54); HEMOGLOBIN 7.6 g/dL (14.0-18.0); LYMPHOCYTES # (AUTO) 0.5 K/uL (1.0-5.5); LYMPHOCYTES % (AUTO) 8.9 % (20.5-51.5); MEAN CORPUSCULAR HEMOGLOBIN 37 pg (27-31); MEAN CORPUSCULAR HGB CONC 34 % (32-36); MEAN CORPUSCULAR VOLUME 109 fL (79.0-98.0); MONOCYTES # (AUTO) 0.2 K/uL (0.0-1.0); MONOCYTES % (AUTO) 4.8 % (1.7-9.3); NEUTROPHILS # (AUTO) 4.4 K/uL (1.8-7.7); NEUTROPHILS % (AUTO) 86.1 % (40.0-70.0); RED BLOOD CELL COUNT(AUTO) 2.07 MIL/uL (4.2-6.2); RED CELL DISTRIBUTION WIDTH 20.3 % (9.0-15.0); RETICULOCYTE COUNT 3.5 % (0.5-1.5); WHITE BLOOD COUNT (AUTO) 5.1 K/uL (4.8-10.8)
[2020-03-30 06:40] LABS: PLATELET COUNT (AUTO) 46 K/uL (130-430)
[2020-03-30 06:45] LABS: ALANINE AMINOTRANSFERASE 38 U/L (12-78); ASPARTATE AMINOTRANSFERASE 20 U/L (10-37); CALCIUM 8.7 mg/dL (8.4-11.0); CHLORIDE 116 mmol/L (98-107); CREATININE 0.59 mg/dL (0.55-1.30); GLUCOSE 343 mg/dL (70-99); PHOSPHORUS 2.5 mg/dL (2.7-4.5); POTASSIUM 3.7 mmol/L (3.5-5.1); SODIUM SERUM 147 mmol/L (136-145); TOTAL BILIRUBIN 0.3 mg/dL (0.0-1.0); UREA NITROGEN, BLOOD 24 mg/dL (8-21)
[2020-03-30 07:05] LABS: ANION GAP < 3 (5-15)
[2020-03-30 08:00] VITALS: BP_SYST 101
[2020-03-30] MEDS: ENOXAPARIN SODIUM 30 MG/0.3 ML SYRINGE SUBCUT SCH (09:00)
[2020-03-30] MEDS: DOXYCYCLINE HYCLATE 100 MG in D5W 100 ML IV SCH ×2 (09:21→22:42)
[2020-03-30 12:00] VITALS: BP_SYST 121
[2020-03-30] MEDS: VANCOMYCIN HCL ORAL SOLUTION 250 MG/5 ML, 80 ML PO SCH ×3 (13:00→21:00)
[2020-03-30 16:00] VITALS: BP_SYST 133
[2020-03-30] MEDS: TPN CENTRAL IV SCH ×10 (22:39)
[2020-03-30] MEDS: [UNRECOGNIZED DRUG - OTHER] IV SCH ×10 (22:39)
[2020-03-30] MEDS: POTASSIUM CHLORIDE IV SCH ×10 (22:39)
[2020-03-30] MEDS: POTASSIUM ACETATE IV SCH ×10 (22:39)
[2020-03-30] MEDS: FAT EMULSIONS 250 ML IV SCH (22:42)
[2020-03-31 01:59] VITALS: BP_SYST 139
[2020-03-31] MEDS: methylPREDNISolone SOD SUCC/PF 62.5 MG/ML VIAL IVP SCH ×4 (05:32→22:05)
[2020-03-31] MEDS: INSULIN REGULAR, HUMAN 100 UNITS/ML, 10 ML VIAL (humuLIN R) SUBCUT PRN ×4 (05:34→22:06)
[2020-03-31 09:00] VITALS: BP_SYST 139
[2020-03-31] MEDS: VANCOMYCIN HCL ORAL SOLUTION 250 MG/5 ML, 80 ML PO SCH (09:00)
[2020-03-31 11:31] VITALS: BP_SYST 115
[2020-03-31] MEDS: ENOXAPARIN SODIUM 30 MG/0.3 ML SYRINGE SUBCUT SCH (11:51)
[2020-03-31] MEDS: DOXYCYCLINE HYCLATE 100 MG in D5W 100 ML IV SCH ×2 (12:03→20:11)
[2020-03-31 15:42] VITALS: BP_SYST 120
[2020-03-31 16:06] LABS: HEMATOCRIT 24.7 % (36-54); MEAN CORPUSCULAR HEMOGLOBIN 36 pg (27-31); MEAN CORPUSCULAR HGB CONC 32 % (32-36); RED BLOOD CELL COUNT(AUTO) 2.21 MIL/uL (4.2-6.2); RED CELL DISTRIBUTION WIDTH 20.7 % (9.0-15.0)
[2020-03-31 16:12] LABS: ALANINE AMINOTRANSFERASE 56 U/L (12-78); ANION GAP 7 (5-15); ASPARTATE AMINOTRANSFERASE 50 U/L (10-37); CALCIUM 8.2 mg/dL (8.4-11.0); CHLORIDE 115 mmol/L (98-107); CREATININE 0.49 mg/dL (0.55-1.30); PHOSPHORUS 2.2 mg/dL (2.7-4.5); POTASSIUM 3.9 mmol/L (3.5-5.1); SODIUM SERUM 148 mmol/L (136-145); TOTAL BILIRUBIN 0.4 mg/dL (0.0-1.0); UREA NITROGEN, BLOOD 29 mg/dL (8-21)
[2020-03-31 16:15] LABS: PLATELET COUNT (AUTO) 38 K/uL (130-430)
[2020-03-31 16:16] LABS: MEAN CORPUSCULAR VOLUME 112 fL (79.0-98.0); WHITE BLOOD COUNT (AUTO) 2.9 K/uL (4.8-10.8)
[2020-03-31 16:17] LABS: GLUCOSE 429 mg/dL (70-99)
[2020-03-31 16:30] LABS: BAND % (MANUAL) 2 % (0-6); BASOPHILS % (MANUAL) 0 % (0-2); EOSINOPHILS % (MANUAL) 0 % (0-7); LYMPHOCYTES % (MANUAL) 10 % (20-46); MONOCYTES % (MANUAL) 3 % (0-11)
[2020-03-31 20:00] VITALS: BP_SYST 133
[2020-03-31] MEDS: POTASSIUM ACETATE IV SCH ×10 (20:12)
[2020-03-31] MEDS: TPN CENTRAL IV SCH ×10 (20:12)
[2020-03-31] MEDS: FAT EMULSIONS 250 ML IV SCH (20:12)
[2020-03-31] MEDS: POTASSIUM CHLORIDE IV SCH ×10 (20:12)
[2020-03-31] MEDS: [UNRECOGNIZED DRUG - OTHER] IV SCH ×10 (20:12)
[2020-03-31] MEDS: metroNIDAZOLE 500 mg/NS 100 ML IV SCH (22:41)
[2020-03-31] MEDS ORDERED: metroNIDAZOLE 500 mg/NS 100 ML IV ONE (22:47)
[2020-04-01] VITALS (8 sets, daily range): BP systolic 101–113
[2020-04-01] MEDS: INSULIN REGULAR, HUMAN 100 UNITS/ML, 10 ML VIAL (humuLIN R) SUBCUT PRN ×4 (06:14→22:23)
[2020-04-01 07:54] LABS: ALANINE AMINOTRANSFERASE 67 U/L (12-78); ANION GAP 6 (5-15); ASPARTATE AMINOTRANSFERASE 59 U/L (10-37); CALCIUM 8.4 mg/dL (8.4-11.0); CHLORIDE 113 mmol/L (98-107); CREATININE 0.65 mg/dL (0.55-1.30); GLUCOSE 397 mg/dL (70-99); PHOSPHORUS 2.1 mg/dL (2.7-4.5); POTASSIUM 3.9 mmol/L (3.5-5.1); SODIUM SERUM 149 mmol/L (136-145); TOTAL BILIRUBIN 0.4 mg/dL (0.0-1.0); UREA NITROGEN, BLOOD 31 mg/dL (8-21)
[2020-04-01 08:15] LABS: BASOPHILS % (AUTO) 0.2 % (0.0-2.0); HEMATOCRIT 24.1 % (36-54); LYMPHOCYTES # (AUTO) 0.4 K/uL (1.0-5.5); MEAN CORPUSCULAR HEMOGLOBIN 37 pg (27-31); MEAN CORPUSCULAR HGB CONC 33 % (32-36); MEAN CORPUSCULAR VOLUME 111 fL (79.0-98.0); MONOCYTES # (AUTO) 0.1 K/uL (0.0-1.0); MONOCYTES % (AUTO) 4.9 % (1.7-9.3); NEUTROPHILS # (AUTO) 2.4 K/uL (1.8-7.7); RED BLOOD CELL COUNT(AUTO) 2.17 MIL/uL (4.2-6.2); RED CELL DISTRIBUTION WIDTH 20.6 % (9.0-15.0); WHITE BLOOD COUNT (AUTO) 2.9 K/uL (4.8-10.8)
[2020-04-01 08:36] LABS: PLATELET COUNT (AUTO) 33 K/uL (130-430)
[2020-04-01 08:37] LABS: NEUTROPHILS % (AUTO) 81.9 % (40.0-70.0)
[2020-04-01] MEDS: ENOXAPARIN SODIUM 30 MG/0.3 ML SYRINGE SUBCUT SCH (09:00)
[2020-04-01] MEDS: DOXYCYCLINE HYCLATE 100 MG in D5W 100 ML IV SCH ×2 (09:00→21:16)
[2020-04-01] MEDS: metroNIDAZOLE 500 mg/NS 100 ML IV SCH ×2 (09:45→22:19)
[2020-04-01] MEDS: methylPREDNISolone SOD SUCC/PF 62.5 MG/ML VIAL IVP SCH ×2 (09:46→21:16)
[2020-04-01] MEDS: D5W 1,000 ML IV SCH (14:15)
[2020-04-01] MEDS ORDERED: POTASSIUM CHLORIDE IV SCH ×10 (21:00)
[2020-04-01] MEDS ORDERED: [UNRECOGNIZED DRUG - OTHER] IV SCH ×10 (21:00)
[2020-04-01] MEDS ORDERED: TPN CENTRAL IV SCH ×10 (21:00)
[2020-04-01] MEDS ORDERED: POTASSIUM ACETATE IV SCH ×10 (21:00)
[2020-04-01] MEDS: FAT EMULSIONS 250 ML IV SCH (21:15)
[2020-04-02 01:53] VITALS: BP_SYST 120
[2020-04-02] MEDS: INSULIN REGULAR, HUMAN 100 UNITS/ML, 10 ML VIAL (humuLIN R) SUBCUT PRN ×4 (06:17→23:28)
[2020-04-02] MEDS: ENOXAPARIN SODIUM 30 MG/0.3 ML SYRINGE SUBCUT SCH (07:11)
[2020-04-02 08:00] VITALS: BP_SYST 97
[2020-04-02] MEDS: metroNIDAZOLE 500 mg/NS 100 ML IV SCH ×2 (08:46→21:38)
[2020-04-02 09:21] LABS: BASOPHILS % (AUTO) 0.3 % (0.0-2.0); EOSINOPHILS % (AUTO) 0.1 % (0.0-4.0); HEMATOCRIT 24.9 % (36-54); HEMOGLOBIN 8.2 g/dL (14.0-18.0); LYMPHOCYTES # (AUTO) 0.5 K/uL (1.0-5.5); LYMPHOCYTES % (AUTO) 13.2 % (20.5-51.5); MEAN CORPUSCULAR HEMOGLOBIN 36 pg (27-31); MEAN CORPUSCULAR HGB CONC 33 % (32-36); MEAN CORPUSCULAR VOLUME 110 fL (79.0-98.0); MONOCYTES # (AUTO) 0.2 K/uL (0.0-1.0); MONOCYTES % (AUTO) 6.1 % (1.7-9.3); NEUTROPHILS # (AUTO) 2.9 K/uL (1.8-7.7); NEUTROPHILS % (AUTO) 80.3 % (40.0-70.0); RED BLOOD CELL COUNT(AUTO) 2.27 MIL/uL (4.2-6.2); RED CELL DISTRIBUTION WIDTH 20.5 % (9.0-15.0); WHITE BLOOD COUNT (AUTO) 3.6 K/uL (4.8-10.8)
[2020-04-02 09:34] LABS: ALANINE AMINOTRANSFERASE 120 U/L (12-78); ANION GAP 5 (5-15); ASPARTATE AMINOTRANSFERASE 115 U/L (10-37); CALCIUM 8.2 mg/dL (8.4-11.0); CHLORIDE 112 mmol/L (98-107); CREATININE 0.62 mg/dL (0.55-1.30); GLUCOSE 255 mg/dL (70-99); POTASSIUM 4.7 mmol/L (3.5-5.1); SODIUM SERUM 148 mmol/L (136-145); TOTAL BILIRUBIN 0.6 mg/dL (0.0-1.0); UREA NITROGEN, BLOOD 45 mg/dL (8-21)
[2020-04-02 09:35] LABS: PHOSPHORUS 2.8 mg/dL (2.7-4.5)
[2020-04-02] MEDS ORDERED: POTASSIUM ACETATE IV SCH ×20 (10:30→21:00)
[2020-04-02] MEDS ORDERED: TPN CENTRAL IV SCH ×20 (10:30→21:00)
[2020-04-02] MEDS ORDERED: POTASSIUM CHLORIDE IV SCH ×20 (10:30→21:00)
[2020-04-02] MEDS ORDERED: [UNRECOGNIZED DRUG - OTHER] IV SCH ×20 (10:30→21:00)
[2020-04-02] MEDS: methylPREDNISolone SOD SUCC/PF 62.5 MG/ML VIAL IVP SCH ×2 (10:37→20:31)
[2020-04-02] MEDS: DOXYCYCLINE HYCLATE 100 MG in D5W 100 ML IV SCH ×2 (10:37→20:27)
[2020-04-02 10:45] LABS: PLATELET COUNT (AUTO) 27 K/uL (130-430)
[2020-04-02 12:06] VITALS: BP_SYST 108
[2020-04-02 16:06] VITALS: BP_SYST 125
[2020-04-02] MEDS: D5W 1,000 ML IV SCH ×2 (17:07→23:31)
[2020-04-02 20:00] VITALS: BP_SYST 122
[2020-04-02] MEDS: FAT EMULSIONS 250 ML IV SCH (20:26)
[2020-04-03] VITALS: BP_SYST 124
[2020-04-03] MEDS: INSULIN REGULAR, HUMAN 100 UNITS/ML, 10 ML VIAL (humuLIN R) SUBCUT PRN ×3 (04:17→18:55)
[2020-04-03 08:05] LABS: BASOPHILS % (AUTO) 0.2 % (0.0-2.0); EOSINOPHILS % (AUTO) 0.1 % (0.0-4.0); HEMATOCRIT 24.3 % (36-54); HEMOGLOBIN 8.2 g/dL (14.0-18.0); LYMPHOCYTES # (AUTO) 0.4 K/uL (1.0-5.5); LYMPHOCYTES % (AUTO) 12.7 % (20.5-51.5); MEAN CORPUSCULAR HEMOGLOBIN 37 pg (27-31); MEAN CORPUSCULAR HGB CONC 34 % (32-36); MEAN CORPUSCULAR VOLUME 109 fL (79.0-98.0); MONOCYTES # (AUTO) 0.1 K/uL (0.0-1.0); NEUTROPHILS # (AUTO) 2.9 K/uL (1.8-7.7); RED BLOOD CELL COUNT(AUTO) 2.23 MIL/uL (4.2-6.2); RED CELL DISTRIBUTION WIDTH 20.8 % (9.0-15.0); WHITE BLOOD COUNT (AUTO) 3.5 K/uL (4.8-10.8)
[2020-04-03 08:18] LABS: ALANINE AMINOTRANSFERASE 138 U/L (12-78); ALBUMIN 1.9 g/dL (3.4-4.8); ANION GAP 7 (5-15); ASPARTATE AMINOTRANSFERASE 113 U/L (10-37); CALCIUM 7.8 mg/dL (8.4-11.0); CHLORIDE 106 mmol/L (98-107); CREATININE 0.81 mg/dL (0.55-1.30); GLUCOSE 372 mg/dL (70-99); POTASSIUM 4.8 mmol/L (3.5-5.1); SODIUM SERUM 140 mmol/L (136-145); TOTAL BILIRUBIN 0.8 mg/dL (0.0-1.0); UREA NITROGEN, BLOOD 57 mg/dL (8-21)
[2020-04-03 08:19] LABS: PHOSPHORUS 3.2 mg/dL (2.7-4.5)
[2020-04-03 08:56] VITALS: BP_SYST 124
[2020-04-03 10:09] LABS: PLATELET COUNT (AUTO) 22 K/uL (130-430)
[2020-04-03] MEDS: methylPREDNISolone SOD SUCC/PF 62.5 MG/ML VIAL IVP SCH ×2 (10:11→22:46)
[2020-04-03] MEDS: ENOXAPARIN SODIUM 30 MG/0.3 ML SYRINGE SUBCUT SCH (10:12)
[2020-04-03] MEDS: DOXYCYCLINE HYCLATE 100 MG in D5W 100 ML IV SCH ×2 (10:17→22:47)
[2020-04-03] MEDS: metroNIDAZOLE 500 mg/NS 100 ML IV SCH ×2 (10:17→22:45)
[2020-04-03 12:44] VITALS: BP_SYST 116
[2020-04-03 16:26] VITALS: BP_SYST 115
[2020-04-03] MEDS: D5W 1,000 ML IV SCH (16:36)
[2020-04-03 19:11] VITALS: BP_SYST 122
[2020-04-03 20:00] VITALS: BP_SYST 122
[2020-04-03] MEDS ORDERED: [UNRECOGNIZED DRUG - OTHER] IV SCH ×10 (21:00)
[2020-04-03] MEDS ORDERED: POTASSIUM ACETATE IV SCH ×10 (21:00)
[2020-04-03] MEDS ORDERED: TPN CENTRAL IV SCH ×10 (21:00)
[2020-04-03] MEDS ORDERED: POTASSIUM CHLORIDE IV SCH ×10 (21:00)
[2020-04-04 00:27] VITALS: BP_SYST 92
[2020-04-04] MEDS: FAT EMULSIONS 250 ML IV SCH (00:34)
[2020-04-04] MEDS: INSULIN REGULAR, HUMAN 100 UNITS/ML, 10 ML VIAL (humuLIN R) SUBCUT PRN ×2 (01:23→06:21)
[2020-04-04 08:00] VITALS: BP_SYST 58
[2020-04-04 08:04] LABS: ALANINE AMINOTRANSFERASE 132 U/L (12-78); ALBUMIN 1.9 g/dL (3.4-4.8); ANION GAP 12 (5-15); ASPARTATE AMINOTRANSFERASE 86 U/L (10-37); CALCIUM 7.5 mg/dL (8.4-11.0); CHLORIDE 100 mmol/L (98-107); CREATININE 1.12 mg/dL (0.55-1.30); PHOSPHORUS 4.3 mg/dL (2.7-4.5); SODIUM SERUM 131 mmol/L (136-145); TOTAL BILIRUBIN 0.8 mg/dL (0.0-1.0); UREA NITROGEN, BLOOD 79 mg/dL (8-21)
[2020-04-04 08:15] LABS: BASOPHILS % (AUTO) 0.3 % (0.0-2.0); EOSINOPHILS % (AUTO) 0.1 % (0.0-4.0); HEMOGLOBIN 8.9 g/dL (14.0-18.0); LYMPHOCYTES # (AUTO) 0.8 K/uL (1.0-5.5); LYMPHOCYTES % (AUTO) 33.3 % (20.5-51.5); MEAN CORPUSCULAR HEMOGLOBIN 37 pg (27-31); MEAN CORPUSCULAR HGB CONC 32 % (32-36); MEAN CORPUSCULAR VOLUME 115 fL (79.0-98.0); NEUTROPHILS # (AUTO) 1.5 K/uL (1.8-7.7); NEUTROPHILS % (AUTO) 64.3 % (40.0-70.0); RED BLOOD CELL COUNT(AUTO) 2.44 MIL/uL (4.2-6.2); RED CELL DISTRIBUTION WIDTH 20.4 % (9.0-15.0); WHITE BLOOD COUNT (AUTO) 2.4 K/uL (4.8-10.8)
[2020-04-04 08:58] LABS: POTASSIUM 5.8 mmol/L (3.5-5.1)
[2020-04-04 08:59] LABS: GLUCOSE 445 mg/dL (70-99)
[2020-04-04] MEDS: ENOXAPARIN SODIUM 30 MG/0.3 ML SYRINGE SUBCUT SCH (09:00)
[2020-04-04 09:20] LABS: PLATELET COUNT (AUTO) 24 K/uL (130-430)
[2020-04-04] MEDS: metroNIDAZOLE 500 mg/NS 100 ML IV SCH (10:56)
[2020-04-04] MEDS: methylPREDNISolone SOD SUCC/PF 62.5 MG/ML VIAL IVP SCH (10:57)
[2020-04-04] MEDS: DOXYCYCLINE HYCLATE 100 MG in D5W 100 ML IV SCH (10:57)
[2020-04-04 11:28] LABS: RETICULOCYTE COUNT 2.1 % (0.5-1.5)
[2020-04-04 13:19] VITALS: BP_SYST 92
[2020-04-04] MEDS ORDERED: MAGNESIUM SULFATE IV SCH ×9 (21:00)
[2020-04-04] MEDS ORDERED: TPN CENTRAL IV SCH ×9 (21:00)
[2020-04-04] MEDS ORDERED: K PHOS IV SCH ×9 (21:00)
[2020-04-04] MEDS ORDERED: [UNRECOGNIZED DRUG - OTHER] IV SCH ×9 (21:00)
[2020-04-04] MEDS ORDERED: SODIUM ACETATE IV SCH ×9 (21:00)
== END 2020-04-04 12:10 | disposition expired | DRG 871 ==
LOC: SED 18:30 → STU 23:06 → SMU 03-31 16:49 → STU 04-04 12:09
PROVIDERS: ADMIT Internal Medicine; ATTEND Internal Medicine
PROC: 30233N1 Transfusion of Nonautologous Red Blood Cells into Peripheral Vein, Percutaneous Approach (ICD-10-PCS; 2020-03-20)
PROC: 02HV33Z Insertion of Infusion Device into Superior Vena Cava, Percutaneous Approach (ICD-10-PCS; 2020-03-20)
PROC: 3E0336Z Introduction of Nutritional Substance into Peripheral Vein, Percutaneous Approach (ICD-10-PCS; principal; 2020-03-22)
PROC: 30233R1 Transfusion of Nonautologous Platelets into Peripheral Vein, Percutaneous Approach (ICD-10-PCS; 2020-03-22)
PROC: 5A12012 Performance of Cardiac Output, Single, Manual (ICD-10-PCS; 2020-04-04)
PROC: 0BH17EZ Insertion of Endotracheal Airway into Trachea, Via Natural or Artificial Opening (ICD-10-PCS; 2020-04-04)
PROC: 5A1935Z Respiratory Ventilation, Less than 24 Consecutive Hours (ICD-10-PCS; 2020-04-04)
DX: A41.9 Sepsis, unspecified organism (principal); G93.41 Metabolic encephalopathy; N17.0 Acute kidney failure with tubular necrosis; A48.1 Legionnaires' disease; I63.9 Cerebral infarction, unspecified; J69.0 Pneumonitis due to inhalation of food and vomit; E43 Unspecified severe protein-calorie malnutrition; E87.0 Hyperosmolality and hypernatremia; A04.72 Enterocolitis due to Clostridium difficile, not specified as recurrent; D61.818 Other pancytopenia; N39.0 Urinary tract infection, site not specified; Z94.84 Stem cells transplant status; Z94.81 Bone marrow transplant status; C85.90 Non-Hodgkin lymphoma, unspecified, unspecified site; Z68.1 Body mass index [BMI] 19.9 or less, adult; E87.4 Mixed disorder of acid-base balance; E83.39 Other disorders of phosphorus metabolism; D53.9 Nutritional anemia, unspecified; I46.9 Cardiac arrest, cause unspecified; E86.0 Dehydration; I70.90 Unspecified atherosclerosis; R13.10 Dysphagia, unspecified; E87.6 Hypokalemia; E11.9 Type 2 diabetes mellitus without complications; E78.5 Hyperlipidemia, unspecified; M10.9 Gout, unspecified; Z78.9 Other specified health status; Z88.8 Allergy status to other drugs, medicaments and biological substances; Z92.21 Personal history of antineoplastic chemotherapy; Z03.818 Encounter for observation for suspected exposure to other biological agents ruled out
CPT/HCPCS: 36415; 36600; 70450-TC; 70544; 70551; 71045; 71250-TC; 76770; 80048; 80053; 81000-TC; 82140-TC; 82272; 82550-TC; 82553-TC; 82607; 82728; 82746; 82803-TC; 82962; 83540-TC; 83550-TC; 83605; 83735-TC; 83880; 84100-TC; 84439; 84443-TC; 84478-TC; 84484; 84550-TC; 85007; 85025; 85027; 85044-TC; 85379; 85384-TC; 85610-TC; 85730-TC; 86140; 86713; 86886; 86900; 86901; 86920; 87040-TC; 87045-TC; 87086; 87230-TC; 89055; 92610-GN; 92950; 93005; 93970; 94002; 94640; 94760; 97110-GP; 97530-GP; 99291; C1751; G0378; J0456; J0610; J0692; J0696; J1100; J1650; J1815; J1940; J2543; J2930; J3370; J3411; J3475; J3480; J3490; J7030; J7042; J7050; J7060; J7120; J7131; P9021; P9034; U0003-CS